=== PATIENT | female | born 1990 | race Caucasian/White ===

== ENCOUNTER → 2018-05-24 | Outpatient (CLI) | payer OTHER ==
[2018-05-24 19:12] LABS: BASO % 0.4 % (0.0-1.0); EOS # 0.3 10^3/uL (0.0-0.50); EOS % 2.8 % (0.0-3.0); HEMATOCRIT 39.6 % (36.0-47.0); HEMOGLOBIN 13.3 g/dl (12.0-15.5); IMMATURE GRANULOCYTE % 0.4 % (0-3.0); LYMPH % 19.3 % (24.0-44.0); MEAN CORPUSCULAR HEMOGLOBIN 29.8 pg (27.0-33.0); MEAN CORPUSCULAR HGB CONC 33.6 g/dl (32.0-36.5); MEAN CORPUSCULAR VOLUME 88.8 fl (80.0-96.0); MONO # 0.6 10^3/uL (0.0-0.8); MONO % 5.8 % (0.0-5.0); NEUTROPHILS # 7.2 10^3/uL (1.8-7.7); NEUTROPHILS % 71.3 % (36.0-66.0); PLATELET COUNT, AUTOMATED 251 10^3/uL (150-450); RED BLOOD COUNT 4.46 10^6/uL (4.00-5.40); RED CELL DISTRIBUTION WIDTH 12.5 % (11.5-14.5); WHITE BLOOD COUNT 10.1 10^3/uL (4.0-10.0)
[2018-05-25 01:34] LABS: CHLAMYDIA DNA AMPLIFICATION NEGATIVE (NEGATIVE); GC DNA AMPLIFICATION NEGATIVE (NEGATIVE)
[2018-05-26 13:25] LABS: HEPATITIS C VIRUS ABY INDEX < 0.0 INDEX (<0.8)
[2018-05-26 13:25] LABS: HBsAg Prenatal NEGATIVE (NEGATIVE); HIV 1&2 SCREEN CENTAUR NEGATIVE (NEGATIVE); RUBELLA IgG QUALITATIVE IMMUNE (IMMUNE)
== END ==
LOC: M LRY 11:52
DX: Z3A.08 8 weeks gestation of pregnancy (principal); Z34.81 Encounter for supervision of other normal pregnancy, first trimester

== ENCOUNTER → 2018-08-13 | Outpatient (CLI) | payer OTHER ==
--- NOTE | 2018-08-13 16:44 | REP ---
HISTORY: Supervision of normal . COMPARISON: None. Multiple ultrasonographic images of the gravid uterus show a single living intrauterine gestation in the cephalic presentation. Doppler interrogation of the heart shows a heart rate of 144 beats per minute. The placenta is posterior fundal and not low lying. The subjective amniotic fluid volume is within normal limits. The cervix measures 3.1 cm in length and is closed. Evaluation of the maternal adnexal spaces showed no abnormalities. BPD 5.0 cm = 21 weeks 1 day HC 18.5 cm = 20 weeks 6 days AC 15.3 cm = 20 weeks 4 days FL 3.7 cm = 21 weeks 4 days Estimated weight is 393 grams which is at the 53rd percentile for a 20 week 6 days gestational age and 72nd percentile for a 20 week 2 day gestational age. The anatomical structures seen as unremarkable are as follows: Cerebellum, cisterna magna, facial features, four chamber heart, ventricular outflow tracts, stomach, cord insertion, three-vessel umbilical cord, kidneys, urinary bladder, and upper and lower extremities. The structures not well seen today are as follows: Thalami, cavum septum pellucidum, and spine. IMPRESSION: Single living intrauterine gestation as described above and estimated gestational age of 20 weeks 6 days via composite criteria and estimated date of delivery of 12/25/2018 by today's exam. No anomalies were detected, however, I recommend a followup examination to better visualize those structures not well seen today as described above. Electronically Signed by Tony Desai DO 08/13/2018 04:58 P
== END ==
LOC: M LRY 13:44
PROVIDERS: ATTEND Advanced Practice Midwife
DX: Z34.82 Encounter for supervision of other normal pregnancy, second trimester (principal); Z3A.20 20 weeks gestation of pregnancy

== ENCOUNTER → 2018-09-02 | Outpatient (CLI) | payer OTHER ==
--- NOTE | 2018-09-02 21:11 | REP ---
Clinical: Anatomical evaluation. Comparison: 08/13/2018 . Findings: Examination demonstrates a single live intrauterine in variable presentation. motion is identified by technologist. Placenta is noted posterior fundal and grade grade zero without evidence for placenta previa or abruption. Amniotic fluid volume is normal. Cervix measures 3.6 cm in length and appears closed. No evidence for nuchal cord. Gestational age by LMP 23 weeks 1 day with DANIA 12/29/2018 . Gestational age by current measurements 23 weeks 3 days with DANIA 12/27/2018 . FHR equals 141 beats per minute. Estimated weight 635 grams ( 49th percentile). Anatomical assessment demonstrates normal structures including cranium, choroid plexus, cavum, cerebellum/posterior fossa, facial features, lungs, four-chamber heart/ventricular outflow tracts, diaphragm, stomach, cord insertion/three-vessel cord, kidneys/bladder, spine, and extremities. Impression: Single live intrauterine in variable presentation demonstrating appropriate interval growth. In conjunction with prior examination anatomical assessment is complete and normal. No gross abnormalities are identified. Electronically Signed by Jose Livingston MD 09/02/2018 09:02 P
== END ==
LOC: M LRY 08:04
PROVIDERS: ATTEND Advanced Practice Midwife
DX: Z34.82 Encounter for supervision of other normal pregnancy, second trimester (principal)

== ENCOUNTER → 2018-10-12 | Outpatient (CLI) | payer OTHER ==
[2018-10-12 16:50] LABS: HEMATOCRIT 34.5 % (36.0-47.0); HEMOGLOBIN 11.3 g/dl (12.0-15.5); MEAN CORPUSCULAR HEMOGLOBIN 29.8 pg (27.0-33.0); MEAN CORPUSCULAR HGB CONC 32.8 g/dl (32.0-36.5); PLATELET COUNT, AUTOMATED 257 10^3/uL (150-450); RED BLOOD COUNT 3.79 10^6/uL (4.00-5.40); WHITE BLOOD COUNT 13.1 10^3/uL (4.0-10.0)
== END ==
LOC: M LRY 10:18
PROVIDERS: ATTEND Advanced Practice Midwife
DX: Z36.89 Encounter for other specified antenatal screening (principal)

== ENCOUNTER → 2018-12-02 | Outpatient (REF) | payer OTHER | LOC: M LAB REF 13:19 | PROVIDERS: ATTEND Advanced Practice Midwife | DX: O99.353 Diseases of the nervous system complicating pregnancy, third trimester (principal); Z3A.00 Weeks of gestation of pregnancy not specified ==

== ENCOUNTER → 2018-12-08 | Outpatient (CLI) | payer OTHER ==
[~2018-12-08] MED LIST: ALLE24TA7 PO; IBUP-1114 PO; MAPA500T2 PO; PRENTAB9 PO
[2018-12-08 12:01] LABS: ALBUMIN 2.3 GM/DL (3.2-5.2); ALT/SGPT 24 U/L (12-78); BILIRUBIN,DIRECT 0.1 MG/DL (0.0-0.2); BILIRUBIN,TOTAL 0.5 MG/DL (0.2-1.0); TOTAL PROTEIN 5.9 GM/DL (6.4-8.2)
[2018-12-08 12:47] LABS: HIV 1&2 SCREEN CENTAUR NEGATIVE (NEGATIVE)
== END ==
LOC: M LRY 09:59
PROVIDERS: ATTEND Advanced Practice Midwife
DX: Z34.83 Encounter for supervision of other normal pregnancy, third trimester (principal); Z3A.00 Weeks of gestation of pregnancy not specified

== ENCOUNTER 2018-12-11 20:02 | Inpatient (IN) | payer OTHER ==
[~2018-12-11] VITALS: Ht 162.6 cm; Wt 76.3 kg
[2018-12-11 20:27] VITALS: BP 111/72
[2018-12-11] MEDS ORDERED: ALLE24TA7 PO (20:32)
[2018-12-11] MEDS ORDERED: miSOPROStol 50 MCG 1/2 TAB (S0191) SL SCH (21:00)
[2018-12-11 21:28] VITALS: BP 113/65
[2018-12-11 21:32] LABS: HEMATOCRIT 38.1 % (36.0-47.0); HEMOGLOBIN 12.4 g/dl (12.0-15.5); MEAN CORPUSCULAR HEMOGLOBIN 26.1 pg (27.0-33.0); MEAN CORPUSCULAR HGB CONC 32.5 g/dl (32.0-36.5); PLATELET COUNT, AUTOMATED 210 10^3/uL (150-450); RED BLOOD COUNT 4.76 10^6/uL (4.00-5.40); WHITE BLOOD COUNT 9.4 10^3/uL (4.0-10.0)
[2018-12-11 21:56] VITALS: BP 113/75
[2018-12-11 22:38] VITALS: BP 122/75
[2018-12-11 23:59] VITALS: BP 107/75
[2018-12-12] VITALS (13 sets, daily range): BP systolic 95–117; BP diastolic 51–77
[2018-12-12] MEDS ORDERED: PROMETHAZINE INJ 25 MG/ML VIAL (J2550) IV ONE (05:15)
[2018-12-12] MEDS ORDERED: BUTORPHANOL 2 MG/ML INJ (J0595) IV ONE (05:15)
[2018-12-12] MEDS ORDERED: LR 1,000 ML IV SCH (05:30)
[2018-12-12] MEDS ORDERED: FENTANYL 2MCG/ML ROPIVACAINE 0.2% IN 0.9% NACL 100ML IVBAG As Ordered ONE (06:43)
[2018-12-12] MEDS ORDERED: OXYTOCIN 30 UNITS IN 0.9% NaCl 500ML IV BAG (J2590) As Ordered ONE (07:00)
[2018-12-12] MEDS ORDERED: DIBUCAINE 1% OINTMENT 30GM TOP PRN (08:30)
[2018-12-12] MEDS ORDERED: RHOGAM 300 MCG (1500 IU) INJ (J2790) IM SCH (08:30)
[2018-12-12] MEDS ORDERED: LIDOCAINE 1% MDV 20ML VIAL INFIL ONE (08:30)
[2018-12-12] MEDS ORDERED: OXYTOCIN DRIP 30 UNITS in APPROPRIATE DILUENT 1 EA IV ONE (08:30)
[2018-12-12] MEDS ORDERED: ONDANSETRON 4MG/2ML VIAL (J2405) IV PRN (08:30)
[2018-12-12] MEDS ORDERED: METHYLERGONOVINE MALEATE 0.2 MG TAB PO PRN (08:30)
[2018-12-12] MEDS ORDERED: DOCUSATE SODIUM 100 MG CAP PO PRN (08:30)
[2018-12-12] MEDS ORDERED: MEASLES,MUMPS,RUBELLA VACCINE INJ (MMR-II) (90707) SC SCH (08:30)
[2018-12-12] MEDS ORDERED: ACETAMINOPHEN 500 MG TAB PO PRN (08:30)
[2018-12-12] MEDS: PRENATAL VITAMINS CHEWABLE TABLET PO SCH (08:45)
--- NOTE | 2018-12-12 08:45 | HPE ---
DATE OF ADMISSION: 12/11/2018 28-year-old 3, para 2 female at 37 and 3/7 weeks gestation by last menstrual period and consistent with 8-week ultrasound, estimated date of confinement (EDC) of 12/29/2018, who presents for labor induction. Indication for induction less than 39 weeks is cholestasis of . She has occasional contractions. She denies vaginal bleeding. COURSE: The patient initiated care at 8 weeks gestation on 05/24/2018. Her first trimester blood pressure was 116/70, weight 142 pounds. She began experiencing intense itching at 37 weeks gestation, bile acid level returned at 16.0. She was diagnosed with cholestasis of . OBSTETRICAL HISTORY: 1. March 2015, 41 week, vaginal delivery, 7 pounds 6 ounce male infant. 2. October 2016, 38 week, vaginal delivery, 7 pounds 2 ounce female infant. MEDICAL HISTORY: Mild asthma. SURGERIES: None. ALLERGIES: None. SOCIAL HISTORY: The patient is . She denies cigarettes, alcohol or drug use. She lives on [address]. FAMILY HISTORY: Noncontributory. PHYSICAL EXAMINATION: Blood pressure 134/74, pulse 84, afebrile. HEAD/NECK: Exam normal. LUNGS: Clear. HEART: Regular rate and rhythm ABDOMEN: Nontender, gravid. heart tones are category 1. Sterile vaginal exam: 1 cm, 50%, -2, vertex. Contractions irregular. EXTREMITIES: Nontender. LABORATORIES: Blood type AB positive, Rubella immune, RPR nonreactive. Hepatitis B and C negative. Group B streptococcus (GBS) negative on 12/02/2018. ASSESSMENT: 28-year-old 3, para 2 female at 37 and 3/7 weeks gestation presents for labor induction. The indication is cholestasis of . PLAN: The patient was admitted on 12/11/2018. The risks of induction were discussed.
[2018-12-12] MEDS: IBUPROFEN 800 MG TAB PO PRN (11:03)
[2018-12-13 06:00] VITALS: BP 106/62
[2018-12-13] MEDS: IBUPROFEN 800 MG TAB PO PRN (06:42)
--- NOTE | 2018-12-13 07:53 | DN ---
DATE OF DELIVERY: 12/12/2018 PREDELIVERY DIAGNOSIS: Term , labor. POSTDELIVERY DIAGNOSIS: Delivered. PROCEDURE: Spontaneous vaginal delivery. PROJECT SYSTEMS ENGINEER: Dr. Abe Garnica MD ANESTHESIA: None. ESTIMATED BLOOD LOSS: 300 mL. FINDINGS: 7 pound 3 ounce male , scores of 8 and 9. DELIVERY SUMMARY: After a short second stage, the patient had spontaneous delivery of a 7 pound 3 ounce male infant, scores of 8 and 9, with no delivery anesthesia There was no nuchal cord. The shoulders delivery with ease. The was handed to the mother and cried spontaneously. Cord was doubly clamped and cut. The placenta delivered spontaneously after 16 minutes and appeared to be intact. The patient received IV Pitocin immediately after delivery of the placement. There were no vaginal lacerations present. Sponge and needle continues were correct.
[2018-12-13] MEDS: PRENATAL VITAMINS CHEWABLE TABLET PO SCH (08:21)
[2018-12-13] MEDS ORDERED: IBUP-1114 PO (09:28)
[2018-12-13] MEDS ORDERED: MAPA500T2 PO (09:28)
[2018-12-13] MEDS ORDERED: PRENTAB9 PO (09:28)
== END 2018-12-13 17:09 | disposition home or self-care (01) | DRG 805 ==
LOC: M LDI 20:02 → M OBS 12-12 10:26 → UNDODISIN 12-13 17:09
PROVIDERS: ADMIT Specialist; ATTEND Specialist
PROC: 10E0XZZ Delivery of Products of Conception, External Approach (ICD-10-PCS; principal; 2018-12-12)
DX: O26.62 Liver and biliary tract disorders in childbirth (principal); K83.1 Obstruction of bile duct; Z37.0 Single live birth

== ENCOUNTER 2020-08-10 10:58 | Emergency (ER) | payer OTHER ==
[~2020-08-10] VITALS: Ht 162.6 cm; Wt 69.6 kg
[2020-08-10] MEDS ORDERED: CITA20TA6 PO (11:06)
[2020-08-10] MEDS ORDERED: MONT5TAB2 PO (11:06)
[2020-08-10] MEDS ORDERED: MECLIZINE 25 MG TABLET PO ONE (11:45)
[2020-08-10 11:55] VITALS: BP 104/69
== END 2020-08-10 11:56 | disposition home or self-care (01) ==
LOC: M ED 10:58
DX: F19.939 Other psychoactive substance use, unspecified with withdrawal, unspecified (principal); R42 Dizziness and giddiness; F41.9 Anxiety disorder, unspecified; Z79.899 Other long term (current) drug therapy